=== PATIENT | female | born 1995 | race Caucasian/White ===

== ENCOUNTER 2016-05-21 17:03 | Emergency (ER) | payer OTHER ==
[2016-05-21 17:49] VITALS: BP 114/73
--- NOTE | 2016-07-04 09:14 | UC ---
Kiley Pond Matthew, scribed for Kaye Mesa MD on 05/21/16 at 1913 . Complaint Female HPI - HPI Summary HPI Summary: A 21 y/o female presents to [facility] with gradually worsening, constant left flank pain since 15:30 today. The pain was rated 7/10 in severity at onset and described as sharp. The pain has partially resolved since onset. She has a Hx of kidney stones. The pain was in a similar location to her previous stones. The patient took a Tylenol [employer], which partial relieved the pain. The patient denies urinary symptoms, dysuria, and vaginal discharge. The patient sees Dr. Michel and was prescribed Zofran and Vicodin to control the pain if she's having symptoms from kidney stones. - History Of Current Complaint Chief Complaint: UCBackPain Stated Complaint: SIDE AND BACK PAIN Time Seen by Provider: 05/21/16 19:02 Hx Obtained From: Patient Hx Last Menstrual Period: 04/21/16 ?: No Onset/Duration: Gradual Onset Timing: Constant Severity Initially: Moderate Severity Currently: Mild Pain Intensity: 7 Pain Scale Used: 0-10 Numeric Character: Sharp Associated Signs And Symptoms: Positive: Negative - Allergies/Home Medications Allergies/Adverse Reactions: Allergies Allergy/AdvReac Type Severity Reaction Status Date / Time No Known Allergies Allergy Verified 05/21/16 17:48 Home Medications: Home Medications Albuterol HFA INHALER* [Ventolin HFA Inhaler*] 1 puff INH Q4H PRN 05/21/16 [ History Confirmed 05/21/16] Control Pills 1 tab 05/21/16 [History] PMH/Surg Hx/FS Hx/Imm Hx Endocrine History Of: Denies: Diabetes, Thyroid Disease Cardiovascular History Of: Denies: Cardiac Disorders, Hypertension Respiratory History Of: Reports: Asthma Denies: COPD GI/ History Of: Denies: Ulcer - Surgical History Surgical History: Yes Surgery Procedure, Year, and Place: t&a - Family History Known Family History: Positive: Hypertension Family History: FHx of Thyroid Disease - Mother. FHx of Kidney Stones - Cousin - Social History Alcohol Use: Rare Substance Use Type: None Smoking Status (MU): Never Smoked Tobacco Review of Systems Constitutional: Negative Skin: Negative Eyes: Negative ENT: Negative Respiratory: Negative Cardiovascular: Negative Gastrointestinal: Other - Left Flank Pain Genitourinary: Negative Motor: Negative Neurovascular: Negative Musculoskeletal: Negative Neurological: Negative Psychological: Negative All Other Systems Reviewed And Are Negative: Yes Physical Exam Triage Information Reviewed: Yes Appearance: Well-Nourished Vital Signs: Initial Vital Signs Temp 98.1 F 05/21/16 17:44 Pulse 82 05/21/16 17:44 Resp 18 05/21/16 17:44 BP 114/73 05/21/16 17:44 Pulse Ox 98 05/21/16 17:44 Vital Signs Reviewed: Yes ENT Exam: Normal Dental Exam: Normal Neck exam: Normal Neck: Positive: No Lymphadenopathy Respiratory: Positive: Chest non-tender, Lungs clear, Normal breath sounds, No respiratory distress Cardiovascular: Positive: RRR, No Murmur, Pulses Normal, Brisk Capillary Refill Bowel Sounds: Positive: Present Musculoskeletal Exam: Normal Neurological Exam: Normal Psychological Exam: Normal Skin Exam: Normal Skin: Negative: rashes Complaint Female Dx - Course Course Of Treatment: No new problems in CCC. Reviewed urine dip with pt. Cx sent. Hx nephrolithiasis. No blood in urine, + wbc's. As such recommend f/u pcp this week, and urologist, as needed. Rx cipro, pending further eval and cx results. Advised to go to the ED for any worse or new symptoms. Questions answered to the best of my ability. - Differential Dx/Diagnosis Provider Diagnoses: Acute left flank pain Discharge - Discharge Plan Condition: Stable Disposition: HOME Prescriptions: Ciprofloxacin TAB* [Cipro Tab*] 250 mg PO BID #20 tab Fluconazole 150 MG (NF) [Diflucan 150 mg (NF)] 150 mg PO DAILY #2 tab Patient Education Materials: Flank Pain (ED) Forms: *Work Release Referrals: Teagan Brizuela MD [Medical Doctor] - Remi Michel MD [Medical Doctor] - Additional Instructions: Follow up with your primary care physician in the next 1-2 weeks if possible. Follow up with Dr. Michel, call Tuesday to schedule follow up appointment for next week. Please go to the Emergency Department for worse or new problems in the meantime. You have a urine culture in the lab. Back up control method for the remainder of this cycle and throughout the next cycle (due to antibiotic). Drink plenty of water. The documentation as recorded by the Kiley apple Matthew accurately reflects the service I personally performed and the decisions made by me, Kaye Mesa MD.
== END 2016-05-21 19:35 | disposition home or self-care (01) ==
LOC: UCEAST 17:03
DX: M54.9 Dorsalgia, unspecified (principal); Z32.02 Encounter for pregnancy test, result negative; Z87.442 Personal history of urinary calculi; J45.909 Unspecified asthma, uncomplicated
CPT/HCPCS: 81002; 81025; 87086; 99212; G0463

== ENCOUNTER 2016-08-01 22:46 | Emergency (ER) | payer OTHER ==
[2016-08-01 22:55] VITALS: BP 123/73
== END 2016-08-02 00:38 | disposition left against medical advice (07) ==
LOC: ED 22:46
DX: R51 Headache (principal); Z53.20 Procedure and treatment not carried out because of patient's decision for unspecified reasons
CPT/HCPCS: 99281

== ENCOUNTER 2018-03-12 08:12 | Emergency (ER) | payer OTHER ==
--- NOTE | 2018-03-12 08:37 | ED ---
Throat Pain/Nasal Congestion - HPI Summary HPI Summary: Patient is a 22-year-old female who presents emergency department for sore throat, nasal congestion and dry cough 4 days. Past medical history of asthma but patient states she has not needed her inhaler or nebulizer that she has been sick. Denies fever, chills, abdominal pain, vomiting, diarrhea, urinary symptoms. Is a student at [employer]. Pt. concerned because she has had strep in the past. Symptoms are mild in severity. Immunizations are up-to-date. No current modifying factors. Isn't taking over- the-counter medications with minimal relief. - History of Current Complaint Chief Complaint: EDThroatPain Time Seen by Provider: 03/12/18 08:30 Hx Obtained From: Patient - Allergies/Home Medications Allergies/Adverse Reactions: Allergies Allergy/AdvReac Type Severity Reaction Status Date / Time No Known Allergies Allergy Verified 03/12/18 08:20 Home Medications: Home Medications FLUoxetine CAP* [Prozac CAP*] 10 mg PO DAILY 03/12/18 [History Confirmed ] Levonorgestrel-Ethin Estradiol [Altavera-28 Tablet] 1 tab PO DAILY 03/12/18 [ History Confirmed 03/12/18] PMH/Surg Hx/FS Hx/Imm Hx Previously Healthy: Yes Endocrine/Hematology History: Denies: Hx Diabetes, Hx Thyroid Disease Cardiovascular History: Denies: Hx Hypertension Respiratory History: Reports: Hx Asthma Denies: Hx Chronic Obstructive Pulmonary Disease (COPD) GI History: Denies: Hx Ulcer - Surgical History Surgery Procedure, Year, and Place: t&a Infectious Disease History: No Infectious Disease History: Denies: Hx Hepatitis, Hx Human Immunodeficiency Virus (HIV), Traveled Outside the [place] in Last 30 Days - Family History Known Family History: Positive: Hypertension Family History: FHx of Thyroid Disease - Mother. FHx of Kidney Stones - Cousin - Social History Occupation: Student Lives: With Family Alcohol Use: None Substance Use Type: Reports: None Smoking Status (MU): Never Smoked Tobacco Review of Systems Constitutional: Negative Negative: Fever, Chills Positive: Sore Throat, Nasal Discharge Positive: Cough. Negative: Shortness Of Breath Gastrointestinal: Negative Genitourinary: Negative Neurological: Negative All Other Systems Reviewed And Are Negative: Yes Physical Exam Triage Information Reviewed: Yes Vital Signs On Initial Exam: Initial Vitals Temp Pulse Resp BP Pulse Ox 98.1 F 98 16 119/72 96 03/12/18 08:18 03/12/18 08:18 03/12/18 08:18 03/12/18 08:18 03/12/18 08:18 Vital Signs Reviewed: Yes Appearance: Positive: Well-Appearing - Pt. sitting up in bed in NAD. Friend present. Skin: Positive: Warm, Dry Head/Face: Positive: Normal Head/Face Inspection Eyes: Positive: Normal, EOMI ENT: Positive: TMs normal, Other - Mild injection to the posterior pharynx without tonsillar edema or exudates. Uvula midline without deviation or edema. Neck: Positive: Supple, Nontender, Enlarged Nodes @ - Small bilateral cervical lymphadenopathy.. Negative: Nuchal Rigidity Respiratory/Lung Sounds: Positive: Clear to Auscultation, Breath Sounds Present. Negative: Rales, Rhonchi, Wheezes Cardiovascular: Positive: Normal, RRR Neurological: Positive: Normal, CN Intact II-III Psychiatric: Positive: Affect/Mood Appropriate Diagnostics - Vital Signs Vital Signs Temp Pulse Resp BP Pulse Ox 03/12/18 08:18 98.1 F 98 16 119/72 96 - Laboratory Lab Statement: Any lab studies that have been ordered have been reviewed, and results considered in the medical decision making process. EENT Course/Dx - Course Course Of Treatment: Pt. presenting with sore throat, mild congestion and dry cough. Afebrile stable vital signs. Exam is relatively unremarkable. Negative strep test. Suspect viral etiology. Advised to continue over-the- counter cold medication as directed. Increase fluids and rest. Tylenol or Motrin for pain as directed. Follow-up with PCP and return to the ER if symptoms change or worsen. Patient understands and agrees with plan. - Differential Diagnoses Differential Diagnoses: Pharyngitis, Tonsilitis, URI/Bronchitis - Diagnoses Provider Diagnoses: Upper respiratory infection, viral Discharge - Sign-Out/Discharge Documenting (check all that apply): Patient Departure - Discharge Plan Condition: Good Disposition: HOME Patient Education Materials: Upper Respiratory Infection (ED) Referrals: No Primary Care Phys,NOPCP [Primary Care Provider] - Additional Instructions: Schedule a follow up appointment with your PCP Increase fluids and rest Can continue over the counter cold medicine as directed Return to ER if symptoms change or worsen - Billing Disposition and Condition Condition: GOOD Disposition: Home
[2018-03-12 09:20] VITALS: BP 104/73
== END 2018-03-12 09:19 | disposition home or self-care (01) ==
LOC: ED 08:12
DX: J06.9 Acute upper respiratory infection, unspecified (principal); J45.909 Unspecified asthma, uncomplicated
CPT/HCPCS: 87651; 99282

== ENCOUNTER 2018-07-16 14:05 | Emergency (ER) | payer OTHER ==
[2018-07-16 15:15] VITALS: BP 129/93
[2018-07-16] MEDS ORDERED: Albuterol/Ipratropium NEB.SOL* Albuterol 2.5 MG/Ipratropium 0.5 MG 3 ML INH ONE (15:26)
[2018-07-16] MEDS ORDERED: methylPREDNISolone 125 MG* 2 ML VIAL IM ONE (15:31)
--- NOTE | 2018-07-16 15:42 | UC ---
Asthma HPI - HPI Summary HPI Summary: C/O worsening wheezing and coughing fits over the last 10 days along with increased allergy symptoms. Some sinus congestion but no fevers/ sweats or chills. Ran out of nebulizer solution and rescue inhaler - History of Current Complaint Chief Complaint: UCRespiratory Stated Complaint: COUGH Time Seen by Provider: 07/16/18 15:25 Hx Obtained From: Patient Hx Last Menstrual Period: 06/05/18 ?: No Onset/Duration: Gradual Onset, Lasting Days - 10, Worse Since - the last 2 days Timing: Constant Initial Severity: Mild Current Severity: Moderate Pain Intensity: 5 Location/Character: Cough (Nonproductive) Aggravating Factor(s): Exertion, Weather Change Alleviating Factor(s): Inhalers/Nebulizers Associated Signs and Symptoms: Positive: Shortness of Breath - Risk Factors Status Asthmaticus Risk Factors: Negative - Allergy/Home Medications Allergies/Adverse Reactions: Allergies Allergy/AdvReac Type Severity Reaction Status Date / Time No Known Allergies Allergy Verified 07/16/18 15:15 PMH/Surg Hx/FS Hx/Imm Hx Respiratory History: Asthma - Surgical History Surgical History: Yes Surgery Procedure, Year, and Place: t&a - Family History Known Family History: Positive: Cardiac Disease, Hypertension Family History: FHx of Thyroid Disease - Mother. FHx of Kidney Stones - Cousin - Social History Occupation: Employed Part-time Lives: Alone - with boyfriend Alcohol Use: Occasionally Substance Use Type: None Smoking Status (MU): Never Smoked Tobacco Review of Systems All Other Systems Reviewed And Are Negative: Yes ENT: Positive: Nasal Discharge, Sinus Congestion Respiratory: Positive: Shortness Of Breath, Cough Is Patient Immunocompromised?: No Physical Exam Triage Information Reviewed: Yes Appearance: Well-Appearing, No Pain Distress, Well-Nourished Vital Signs: Initial Vital Signs Temp 98.2 F 07/16/18 15:07 Pulse 89 07/16/18 15:07 Resp 18 07/16/18 15:07 BP 129/93 07/16/18 15:07 Pulse Ox 98 07/16/18 15:07 Vital Signs Reviewed: Yes Eyes: Positive: Conjunctiva Clear ENT: Positive: Pharynx normal, Nasal congestion, TMs normal Neck exam: Normal Respiratory: Positive: Wheezing - Diffuse expiratory wheezes, worse with coughing. Cardiovascular Exam: Normal Musculoskeletal Exam: Normal Neurological Exam: Normal Psychological Exam: Normal Skin Exam: Normal Re-Evaluation - Re-Evaluation First Eval Re-Evaluation Time: 15:59 Change: Improved - Breathing is much better. No wheezing after nebulizer Asthma Course/Dx - Differential Dx/Diagnosis Differential Diagnosis/HQI/PQRI: Acute Asthma, Pneumonia, Reactive Airway Disease Provider Diagnosis: Asthma with acute exacerbation Discharge - Sign-Out/Discharge Documenting (check all that apply): Patient Departure All imaging exams completed and their final reports reviewed: No Studies - Discharge Plan Condition: Stable Disposition: HOME Prescriptions: Albuterol 2.5MG/3ML (0.083%)* [Ventolin 2.5 MG/3 ML NEB.NEHA*] 2.5 mg INH Q4H PRN #25 neb.soln PRN Reason: Wheezing Albuterol HFA INHALER* [Ventolin HFA Inhaler*] 1 puff INH Q2H PRN #1 mdi PRN Reason: Wheezing predniSONE TAB* [Deltasone TAB*] 50 mg PO DAILY #7 tab Patient Education Materials: Asthma (ED), Prednisone (By mouth) Referrals: No Primary Care Phys,NOPCP [Primary Care Provider] - - Billing Disposition and Condition Condition: STABLE Disposition: Home
== END 2018-07-16 16:05 | disposition home or self-care (01) ==
LOC: UCCORT 14:05
DX: J45.901 Unspecified asthma with (acute) exacerbation (principal)
CPT/HCPCS: 96372; 99212; A9270-GY; G0463; J2930